=== PATIENT | female | born 1985 | race African-American/Black ===

== ENCOUNTER 2023-08-25 09:15 | Emergency (ER) | payer BC, SELFPAY ==
[2023-08-25 09:17] VITALS: BP 131/84; PULSE 82; RESP 14; TEMP 35.7; O2SAT 98; BMI 39.9
--- NOTE | 2023-08-25 09:44 | CT_ITS ---
EXAM: CT HEAD WITHOUT INTRAVENOUS CONTRAST CLINICAL INDICATION: headache, vertigo TECHNIQUE: Multiple axial images were obtained of the head without intravenous contrast. This CT exam was performed using one or more of the following dose reduction techniques: automated exposure control, adjustment of the mA and/or kV according to patient size, and/or use of iterative reconstruction technique. RADIATION DOSE: CTDIvol = 44.99 mGy, DLP = 796.11 mGy-cm COMPARISON: No relevant prior studies available. FINDINGS: BRAIN AND EXTRA-AXIAL SPACES: Unremarkable. No intra- or extra-axial hemorrhage. No evidence of acute infarct. No intracranial mass or mass effect. There is preservation of the baltazar/white matter interface. Posterior fossa structures are unremarkable. Ventricles are appropriate for age. No hydrocephalus. Basal cisterns are patent. 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 Minimal mucosal thickening in the left sphenoid sinus. Normal remaining paranasal sinuses. No discrete lytic or blastic abnormalities. SINUSES: Unremarkable as visualized. Clear. MASTOID AIR CELLS: Unremarkable. Clear. ORBITS: Visualized globes, extraocular muscles, optic nerves and retrobulbar fat appear unremarkable. 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 Otherwise negative noncontrast CT head scan. Electronically Signed: Raj George MD at 11:04 [facility] ,
--- NOTE | 2023-08-25 09:46 | EDS_ITS ---
HPI History of Present Illness Chief Complaint: Headache Informant: patient Onset/Context/Timing Onset: Yesterday Narrative Narrative: Patient presents secondary to headache, nausea, and vertigo. She states she is getting over fluid and still has some congestion. When she went to bed last night she had a mild headache. When she woke this morning she had a headache as well as feeling like the room was spinning. She has had some nausea but no vomiting. No recent head injury. [facility] Medical History (Updated 08/25/23 @ 12:[address] Kassi Ching MD) High cholesterol PCOS (polycystic ovarian syndrome) Home Medications loratadine 10 mg tablet (Claritin) 10 mg PO DAILY 08/25/23 [History Last Taken Unknown] meclizine 50 mg tablet (Antivert) 50 mg PO BID PRN dizziness #20 tabs 08/25/23 [Rx Last Taken Unknown] Allergy/AdvReac Type Severity Reaction Status Date / Time No Known Allergies Allergy Verified 08/25/23 09:17 Social History Smoking Status: Never smoker ROS ROS ED Constitutional Constitutional ED: Denies chills or fever(s) Eyes Eyes: Denies change in vision or discharge from eye(s) ENT ENT ED: Reports rhinorrhea and other Details: Congestion ; Denies discharge from eye(s) or sore throat Cardiovascular Cardiovascular: Denies chest pain or palpitations Respiratory/Chest Respiratory/Chest: Denies cough or dyspnea Gastrointestinal Gastrointestinal: Reports nausea; Denies abdominal pain or vomiting Genitourinary Genitourinary ED: Denies dysuria Musculoskeletal Musculoskeletal: Denies back pain or extremity pain Integumentary Denies Abrasions or rash Neurologic Neurologic: Reports headache(s); Denies weakness Psychiatric Psychiatric: Denies anxiety or depression Allergic/Immunologic Allergic/Immunologic ED: Denies lip swelling or urticaria EXAM Physical Exam Const Vital Signs: 08/25/23 09:17 08/25/23 11:40 Temperature 96.3 F L Temperature Source Temporal Pulse Rate 82 78 Respiratory Rate 14 16 Blood Pressure 131/84 H 132/77 H Blood Pressure Mean 99 95 Pulse Ox 98 99 Oxygen Delivery Method Room Air Room Air Positive well nourished and well developed General Appearance ED: well developed HEENT Reports moist mucous membranes Eyes EOMs intact bilaterally Eyes Narrative: No appreciable nystagmus on exam. Chest Wall inspection of chest normal and palpation of chest normal Resp normal respiratory effort and clear to auscultation bilaterally Cardio regular rate and regular rhythm GI non-tender Palpation: soft Extremity normal to inspection Neuro oriented x3 and no sensory deficits noted Motor Exam: strength 5/5 throughout Psych mental status grossly normal Skin no rashes or lesions noted MDM MDM MDM Narrative Medical decision making narrative: IV line initiated. Patient given IV fluids. Patient given Toradol, Reglan, and Benadryl for headache. Labwork obtained to evaluate for leukocytosis, anemia, and electrolyte derangement. CT scan of the head will be obtained given her headache and vertigo to evaluate for potential mass, bleed, edema. Patient also given p.o. dose of Antivert. Lab Data Attestation: I reviewed the patient's lab results. Labs: Laboratory Results - last 24 hr 08/25/23 10:20 WBC 4.3 L RBC 4.84 Hgb 12.0 Hct 39.4 MCV 81.4 MCH 24.8 L MCHC 30.5 L RDW Std Deviation 41.6 RDW Coeff of Ines 14.3 Plt Count 232 MPV 10.3 Immature Gran % (Auto) 0.200 Neut % (Auto) 52.9 Lymph % (Auto) 38.0 Wolfe % (Auto) 7.7 Eos % (Auto) 0.5 Baso % (Auto) 0.7 Absolute Neuts (auto) 2.3 Absolute Lymphs (auto) 1.62 Nucleated RBC % 0 Sodium 136 Potassium 4.1 Chloride 106 Carbon Dioxide 28.0 Anion Gap 2 L BUN 11 Creatinine 0.93 Estim Creat Clear Calc 132.03 Est GFR (MDRD) Af Amer 87 Est GFR (MDRD) Non-Af 72 BUN/Creatinine Ratio 11.9 Glucose 123 H Calcium 9.4 Radiography Diagnostic Testing: Clinical Impression(s) from Imaging Studies Brain CT 08/25/23 09:44 IMPRESSION: 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 Otherwise negative noncontrast CT head scan. Electronically Signed: Raj George MD at 11:04 EST , Treatment and Re-Evaluation :: CBC reveals white count of 4.3 consistent with her recent viral infection. Chemistry studies unremarkable. CT scan of the head reveals a small benign osteoma in the right middle ethmoid sinus with minimal mucosal thickening of the left sphenoid. Otherwise negative scan. On repeat evaluation patient does feel improved. She is able to turn her head [id number] and up and down without having significant vertigo. I will give her a prescription for Antivert as her symptoms do seem to be brought on by head movement and consistent with peripheral vertigo. Discharge Plan Triage Chief Complaint: Headache ED Provider: Kassi Ching Dx/Rx/DC Orders Clinical Impression: Headache, Vertigo Instructions: ED Headache Unspecified, ED Vertigo, Unspecified Prescriptions: New meclizine [Antivert] 50 mg tablet 50 mg PO BID PRN (Reason: dizziness) Qty: 20 0RF No Action loratadine [Claritin] 10 mg tablet 10 mg PO DAILY Primary Care Provider: Esthela Lopez NP Referrals: Esthela Lopez NP, [employer] [Primary Care Provider] - 3-5 Days if not improving Disposition Disposition: Home, Self Care
[2023-08-25 10:28] LABS: Absolute Lymphocyte Count 1.62 X10^3/uL (0.83-4.51); Absolute Neutrophil Count 2.3 X10^3/uL (2.0-7.7); Basophil# 0.03 X10^3/uL; Basophil% 0.7 % (0-1); Eosinophil# 0.02 X10^3/uL; Eosinophils% 0.5 % (0-5); Hematocrit 39.4 % (37-47); Lymphocyte # 1.62 X10^3/ul (0.83-4.51); Mean Corp Hgb Conc 30.5 g/dL (32-36); Mean Corpuscular Hgb 24.8 pg (27.0-32.0); Mean Corpuscular Volume 81.4 fL (81-99); Mean Platelet Vol. 10.3 fl (6.2-12.0); Monocyte# 0.33 X10^3/uL; Monocyte% 7.7 % (0-10); NRBC Flagged by Analyzer 0 % (0-5); Neutrophil # 2.25 X10^3/uL (2.7-7.7); Neutrophil % 52.9 % (47-70); Platelet Count 232 K/mm3 (150-450); RBC Distribution Width CV 14.3 % (11.6-14.6); RBC Distribution Width SD 41.6 fl (35.1-43.9); Red Blood Count 4.84 M/mm3 (4.2-5.4); White Blood Count 4.3 K/mm3 (4.4-11.0)
[2023-08-25] MEDS: DiphenhydrAMINE 50 MG/ML Syringe 25 MG IV (10:36)
[2023-08-25] MEDS: Meclizine HCl 25 MG Tablet PO (10:36)
[2023-08-25] MEDS: 0.9% Normal Saline (1000mL) 1,000 ML 1000 ML IV (10:36)
[2023-08-25] MEDS: Metoclopramide 10 MG/2 ML Vial 5 MG IV (10:36)
[2023-08-25] MEDS: Ketorolac 30 MG/ML Syringe IV (10:36)
[2023-08-25 10:51] LABS: Anion Gap 2 (5-15); BUN 11 mg/dL (7-18); BUN/Creat Ratio 11.9 RATIO (10-20); Calcium,Total 9.4 mg/dL (8.5-10.1); Chloride 106 mmol/L (98-107); Creatinine, Serum 0.93 mg/dL (0.55-1.02); EST Glomerular Filtration Rate 72 mL/min (>60); Est Glom Filt Rate - Afr Amer 87 mL/min (>60); Estimated Creatinine Clearance 132.03 ml/min; Glucose 123 mg/dL (74-106); Potassium 4.1 mmol/L (3.5-5.1); Sodium Level 136 mmol/L (136-145)
[2023-08-25 11:40] VITALS: BP 132/77; PULSE 78; RESP 16; O2SAT 99
--- NOTE | 2023-08-25 11:41 | ED.RN ---
friend concerned that pt was having a stroke this am. went to bed around 2230/2300 as last known well. at 0550 friend states she woke up confused. no change s in speech. also having difficulty texting with both thumbs.
[2023-08-25 12:11] VITALS: BP 132/77; PULSE 78; RESP 16; TEMP 35.7; O2SAT 99
== END 2023-08-25 12:12 | disposition home or self-care (01) ==
PROVIDERS: Emergency Provider Emergency Medicine; PCP Clinical Nurse Specialist; Visit Provider Emergency Medicine
DX: R42 Dizziness and giddiness (principal); R51.9 Headache, unspecified; R11.0 Nausea
CPT/HCPCS: 70450; 80048; 85025; 96361; 96374; 96375; 99283; J7030; A4216